=== PATIENT | male | born 1940 | race Caucasian/White ===

== ENCOUNTER 2019-02-03 09:50 | Inpatient (IN) | payer OTHER, MEDICARE ==
[2019-02-03] MEDS ORDERED: CEFEPIME 1 GM/100 ML BAG IV ONE (10:29)
[2019-02-03] MEDS ORDERED: NA CHLORIDE 0.9% 0 ML ONE (10:29)
[2019-02-03] MEDS ORDERED: NOREPINEPHRINE 4mg/D5W 250mL 4 MG/250 ML BAG IV ONE (10:42)
[2019-02-03] MEDS ORDERED: VANCOMYCIN/NS 1 gm 1 GM/250 ML BAG IV ONE (10:45)
[2019-02-03 10:57] LABS: Absolute Lymphocytes (CBC) 0.5 K/uL (0.7-4.9); Basophils % 0.1 % (0-1.3); Hematocrit 44.7 % (39.6-49.0); Lymphocytes % 7.7 % (15.3-44.8); MPV 9.3 fL (7.6-11.3); RBC Red Blood Cell Count 5.02 M/uL (4.33-5.43)
[2019-02-03] MEDS ORDERED: NA CHLORIDE 0.9% 2,000 ML ONE (11:00)
[2019-02-03] MEDS ORDERED: ACETAMINOPHEN 650MG/RECT SUPP PR ONE (11:00)
[2019-02-03 11:01] LABS: Protime INR 2.43
[2019-02-03 11:04] LABS: Arterial Blood Carboxyhemoglob 0.7 % (0-1.5); Blood Gas Oxyhemoglobin 98.3 % (94-97); Blood O2 Saturation 99.6 % (92-98.5)
[2019-02-03 11:16] LABS: Urine Blood NEGATIVE (NEG); Urine Glucose NEGATIVE (NEG); Urine Protein NEGATIVE (NEG); Urine Specific Gravity 1.015 (1.005-1.030); Urine pH 5.5 (5.0-7.0)
[2019-02-03 11:18] LABS: Albumin 3.1 g/dL (3.4-5.0); Bilirubin Direct 0.6 mg/dL (0-0.2); Bilirubin Total 1.1 mg/dL (0.2-1.0); Protein, Total 6.6 g/dL (6.4-8.2); Troponin (Emerg Dept Use Only) 0.04 ng/mL (0.0-0.045)
--- NOTE | 2019-02-03 11:22 | RAD REPORT ---
EXAM DESCRIPTION: Deneen Single View02/03/2019 11:03 am CLINICAL HISTORY: Chest pain COMPARISON: 2016 FINDINGS: The lungs appear clear of acute infiltrate. The heart is mildly enlarged The aorta is tortuous/ectatic IMPRESSION: No acute abnormalities displayed
[2019-02-03 11:23] LABS: CKMB Creatine Kinase MB 10.9 ng/mL (0.3-3.6); Potassium 2.7 mmol/L (3.5-5.1)
[2019-02-03] MEDS ORDERED: KCL 20 MEQ/100 mL IVPB 20 MEQ/100 ML BAG IV ONE (11:31)
[2019-02-03] MEDS ORDERED: NA CHLORIDE 0.9% 1,000 ML ONE (11:46)
--- NOTE | 2019-02-03 11:57 | EDPHYS ---
Physician Documentation [facility] Name: Calin Weems Age: 78 yrs Sex: Male : 1940 Arrival Date: 02/03/2019 Time: 10:04 Bed 4 Private MD: ED Physician Kayden Coe HPI: 02/03 11:51 This 78 yrs old Male presents to ER via Wheelchair with complaints of Leg jr8 Swelling/ Shortness of breath. 11:51 The patient has shortness of breath at rest. Onset: The symptoms/episode began/occurred jr8 acutely, today. Duration: The symptoms are continuous. The patient's shortness of breath is aggravated by talking, walking. Associated signs and symptoms: Pertinent positives: fever. Severity of symptoms: At their worst the symptoms were severe in the emergency department the symptoms are unchanged. The patient has not experienced similar symptoms in the past. The patient has not recently seen a physician. Historical: - Allergies: 10:10 Demerol; aa5 10:10 Lisinopril; aa5 11:57 meperidine HCl; tw2 11:57 nifedipine; tw2 11:57 cephalexin; tw2 - PMHx: 10:10 Hyperlipidemia; Hypertension; aa5 - PSHx: 10:10 Hernia repair; prostate surgery; back surgery; aa5 - Immunization history:: Adult Immunizations unknown. - Ebola Screening: : No symptoms or risks identified at this time. - Social history:: Smoking status: Patient/guardian denies using tobacco. ROS: 11:52 Eyes: Negative for injury, pain, redness, and discharge, ENT: Negative for injury, jr8 pain, and discharge, Neck: Negative for injury, pain, and swelling, Cardiovascular: Negative for chest pain, palpitations, and edema, Abdomen/GI: Negative for abdominal pain, nausea, vomiting, diarrhea, and constipation, Back: Negative for injury and pain, Skin: Negative for injury, rash, and discoloration, Neuro: Negative for headache, weakness, numbness, tingling, and seizure. 11:52 Constitutional: Positive for fever. 11:52 Respiratory: Positive for shortness of breath. 11:52 MS/extremity: Positive for erythema, pain, swelling, tenderness, warmth. Exam: 11:52 Eyes: Pupils equal round and reactive to light, extra-ocular motions intact. Lids and jr8 lashes normal. Conjunctiva and sclera are non-icteric and not injected. Cornea within normal limits. Periorbital areas with no swelling, redness, or edema. ENT: Nares patent. No nasal discharge, no septal abnormalities noted. Tympanic membranes are normal and external auditory canals are clear. Oropharynx with no redness, swelling, or masses, exudates, or evidence of obstruction, uvula midline. Mucous membranes moist. Neck: Trachea midline, no thyromegaly or masses palpated, and no cervical lymphadenopathy. Supple, full range of motion without nuchal rigidity, or vertebral point tenderness. No Meningismus. Abdomen/GI: Soft, non-tender, with normal bowel sounds. No distension or tympany. No guarding or rebound. No evidence of tenderness throughout. Back: No spinal tenderness. No costovertebral tenderness. Full range of motion. MS/ Extremity: Pulses equal, no cyanosis. Neurovascular intact. Full, normal range of motion. Neuro: Awake and alert, GCS 15, oriented to person, place, time, and situation. Cranial nerves II-XII grossly intact. Motor strength 5/5 in all extremities. Sensory grossly intact. Cerebellar exam normal. Normal gait. 11:52 Cardiovascular: Rate: tachycardic, Rhythm: regular, Pulses: Pulses are 2+ in right radial artery, right femoral artery, left radial artery and left femoral artery. Heart sounds: normal, normal S1and S2, no S3 or S4, no murmur, no rub, no gallop, Edema: 2+ edema to level of left midcalf, left ankle, left foot, right midcalf, right ankle and right foot, JVD: is not appreciated. 11:52 Respiratory: moderate respiratory distress is noted, Respirations: labored breathing, tachypnea, Breath sounds: are clear throughout. 11:52 Skin: cellulitis, that is moderate, on the right and left lower legs from the feet to knees. Vital Signs: 10:10 BP 64 / 52; Pulse 130; Resp 30 S; Temp 100.4(TE); Pulse Ox 95% on R/A; aa5 10:35 BP 65 / 52; Pulse 136; Resp 46; Pulse Ox 96% on R/A; ch 11:15 BP 103 / 63; Pulse 122; Resp 36; Temp 103.2(C); Pulse Ox 99% on BiPAP; Weight 104.33 ch kg; Height 5 ft. 7 in. (170.18 cm); Pain 0/10; 11:32 BP 116 / 63; Pulse 123; Resp 40; Temp 102.6(C); Pulse Ox 100% on R/A; Pain 0/10; ch 11:56 BP 113 / 83; Pulse 119; Resp 37; Temp 102(C); Pulse Ox 100% on BiPAP; tw2 12:15 BP 116 / 72; Pulse 135; Resp 25; Pulse Ox 97% on BiPAP; tw2 12:30 BP 116 / 82; Pulse 143; Resp 44; Temp 102.2(C); Pulse Ox 100% on BiPAP; Pain 0/10; ch 12:45 BP 97 / 71; Pulse 126; Resp 27; Pulse Ox 95% on BiPAP; tw2 13:00 BP 113 / 50; Pulse 133; Resp 30; Pulse Ox 95% on BiPAP; tw2 13:14 BP 92 / 63; Pulse 141; Resp 42; Temp 102.3(C); Pulse Ox 95% on BiPAP; Pain 8/10; ch 13:30 BP 88 / 60; Pulse 130; Resp 41; Pulse Ox 99% on BiPAP; tw2 13:45 BP 95 / 48; Pulse 113; Resp 30; Pulse Ox 99% on BiPAP; ch 14:00 BP 84 / 72; Pulse 122; Resp 33; Pulse Ox 100% on BiPAP; tw2 14:15 BP 90 / 74; Pulse 130; Resp 24; Temp 101.6(C); Pulse Ox 99% on BiPAP; tw2 14:30 BP 104 / 66; Pulse 142; Resp 35; Temp 101.5(C); Pulse Ox 99% ; Pain 6/10; ch 14:45 BP 99 / 66; Pulse 114; Resp 33; Pulse Ox 98% on BiPAP; tw2 11:15 Body Mass Index 36.02 (104.33 kg, 170.18 cm) ch Procedures: 10:47 Central Line: the site was prepped with Betadine, in sterile fashion, a triple lumen jr8 catheter was inserted, in the right femoral vein, in 1 attempts. placement was verified, by blood return, the site was dressed with 4X4s, Tegaderm, foam tape, using sterile technique, the patient tolerated the procedure, well. MDM: 10:15 Patient medically screened. jr8 11:54 Data reviewed: vital signs, nurses notes, lab test result(s), EKG, radiologic studies, jr8 plain films, ultrasound. Data interpreted: Pulse oximetry: on Bipap is 100 %. Interpretation: acceptable. Counseling: I had a detailed discussion with the patient and/or guardian regarding: the historical points, exam findings, and any diagnostic results supporting the discharge/admit diagnosis, lab results, radiology results, the need for further work-up and treatment in the hospital. Response to treatment: the patient's symptoms have mildly improved after treatment. Physician consultation: Adalberto Molina MD was called at 11:55, was contacted at 11:55, regarding admission, to the ICU, consult, patient's condition, and will see patient in ED. 02/03 10:26 Order name: Basic Metabolic Panel; Complete Time: 11:34 02/03 10:26 Order name: Blood Culture Adult (2) 02/03 10:26 Order name: CBC with Diff 02/03 10:26 Order name: Ckmb; Complete Time: 11:34 02/03 10:26 Order name: CPK; Complete Time: 11:34 02/03 10:26 Order name: Lactate; Complete Time: 11:23 02/03 10:26 Order name: LFT's; Complete Time: 11:34 02/03 10:26 Order name: Lipase; Complete Time: 11:34 02/03 10:26 Order name: Procalcitonin; Complete Time: 11:34 02/03 10:26 Order name: Protime (+inr); Complete Time: 11:07 02/03 10:26 Order name: Ptt, Activated; Complete Time: 11:07 02/03 10:26 Order name: Troponin (emerg Dept Use Only); Complete Time: 11:34 02/03 10:26 Order name: Urine Microscopic Only; Complete Time: 12:09 02/03 11:02 Order name: ABG; Complete Time: 11:07 jr8 02/03 10:26 Order name: Chest Single View XRAY; Complete Time: 11:34 02/03 10:45 Order name: US Extremity Venous W Compression Douglas; Complete Time: 12:33 jr8 02/03 11:02 Order name: BIPAP jr8 02/03 11:04 Order name: Urine Dipstick--Ancillary (enter results); Complete Time: 11:17 gm 02/03 11:23 Order name: Magnesium; Complete Time: 12:09 jr8 02/03 11:23 Order name: Phosphorus; Complete Time: 12:09 jr8 02/03 12:09 Order name: Urine Culture EDMS 02/03 13:04 Order name: Lactate; Complete Time: 14:15 tw2 02/03 13:27 Order name: ABG; Complete Time: 14:26 jr8 02/03 10:26 Order name: Accucheck; Complete Time: 11:41 ch 02/03 10:26 Order name: Cardiac monitoring; Complete Time: 10:41 ch 02/03 10:26 Order name: EKG - Nurse/Tech; Complete Time: 10:41 ch 02/03 10:26 Order name: IV Saline Lock - Large Bore; Complete Time: 11:36 ch 02/03 10:26 Order name: Labs collected and sent; Complete Time: 11:36 ch 02/03 10:26 Order name: O2 Per Protocol; Complete Time: 10:41 ch 02/03 10:26 Order name: O2 Sat Monitoring; Complete Time: 10:41 ch 02/03 10:26 Order name: Urine Dipstick-Ancillary (obtain specimen); Complete Time: 11:36 ch 02/03 12:47 Order name: EKG Electrocardiogram EDMS Administered Medications: 10:40 Drug: NS 0.9% (30 ml/kg) 3000 ml Route: IV; Rate: bolus; Site: right femoral; 11:45 Follow up: IV Status: Completed infusion; IV Intake: 3000ml ch 13:31 Follow up: IV Status: Completed infusion; IV Intake: 100ml ch 10:51 Drug: Cefepime 1 grams Route: IVPB; Rate: 200 ml/hr; Infused Over: 30 mins; Site: right ch femoral; 11:00 Follow up: IV Status: Completed infusion; IV Intake: 100ml ch 10:51 Drug: Levophed (4 mg/250 mL D5W 4 mcg/min Route: IV; Rate: calculated rate; Site: right ch femoral; 14:13 Follow up: IV Status: Infusion continued upon admission ch 11:00 Drug: Tylenol Suppository 650 mg Route: TX; 14:13 Follow up: Response: No adverse reaction 11:13 Drug: vancoMYCIN 1 grams Route: IVPB; Infused Over: 2 hrs; Site: right femoral; 13:30 Follow up: IV Status: Completed infusion; IV Intake: 200ml 11:33 Drug: Potassium Chloride 20 mEq Route: IV; Rate: calculated rate; Site: right femoral; 13:28 Follow up: IV Status: Completed infusion; IV Intake: 50ml 13:15 Drug: fentaNYL (PF) 50 mcg Route: IVP; Site: right femoral; Disposition: 02/04 07:36 Co-signature as Attending Physician, Kayden Coe MD I agree with the assessment and robbie plan of care. Disposition: 02/03/19 11:57 Hospitalization ordered by Adalberto Molina for Inpatient Admission. Preliminary diagnosis are Acute kidney failure, Cellulitis of left lower limb, Cellulitis of right lower limb, Acidosis, Dehydration, Severe sepsis with septic shock, Urinary tract infection, site not specified. - Bed requested for Intensive Care Unit. - Status is Inpatient Admission. tw2 - Condition is Fair. - Problem is new. - Symptoms have improved. UTI on Admission? Yes Signatures: Dispatcher [employer] EDMS Yashira King RN RN ch Anderson, Corey, MD MD cha Calderon, Audri, RN RN aa5 Davide Silver PA PA jr8 Nikki Cm RN RN tw2 Jame Ramírez RN RN ja1 Corrections: (The following items were deleted from the chart) 02/03 12:09 11:57 Hospitalization Ordered by Adalberto Molina MD for Inpatient Admission. Preliminary jr8 diagnosis is Acute kidney failure; Cellulitis of left lower limb; Cellulitis of right lower limb; Acidosis; Dehydration; Severe sepsis with septic shock. Bed requested for Intensive Care Unit. Status is Inpatient Admission. Condition is Fair. Problem is new. Symptoms have improved. UTI on Admission? No. jr8 12:09 12:09 02/03/2019 11:57 Hospitalization Ordered by Adalberto Molina MD for Inpatient jr8 Admission. Preliminary diagnosis is Acute kidney failure; Cellulitis of left lower limb; Cellulitis of right lower limb; Acidosis; Dehydration; Severe sepsis with septic shock. Bed requested for Intensive Care Unit. Status is Inpatient Admission. Condition is Fair. Problem is new. Symptoms have improved. UTI on Admission? Yes. jr8 13:59 12:09 02/03/2019 11:57 Hospitalization Ordered by Adalberto Molina MD for Inpatient ja1 Admission. Preliminary diagnosis is Acute kidney failure; Cellulitis of left lower limb; Cellulitis of right lower limb; Acidosis; Dehydration; Severe sepsis with septic shock; Urinary tract infection, site not specified. Bed requested for Intensive Care Unit. Status is Inpatient Admission. Condition is Fair. Problem is new. Symptoms have improved. UTI on Admission? Yes. jr8 14:48 13:59 02/03/2019 11:57 Hospitalization Ordered by Adalberto Molina MD for Inpatient tw2 Admission. Preliminary diagnosis is Acute kidney failure; Cellulitis of left lower limb; Cellulitis of right lower limb; Acidosis; Dehydration; Severe sepsis with septic shock; Urinary tract infection, site not specified. Bed requested for Intensive Care Unit. Status is Inpatient Admission. Condition is Fair. Problem is new. Symptoms have improved. UTI on Admission? Yes. ja1
--- NOTE | 2019-02-03 11:57 | ER ---
Nurse's Notes [facility] Name: Calin Weems Age: 78 yrs Sex: Male : 1940 Arrival Date: 02/03/2019 Time: 10:04 Bed 4 Private MD: Diagnosis: Acute kidney failure;Cellulitis of left lower limb;Cellulitis of right lower limb;Acidosis;Dehydration;Severe sepsis with septic shock;Urinary tract infection, site not specified Presentation: 02/03 10:10 Presenting complaint: Patient states: SOB noted in triage. Pt report rose leg swelling. aa5 Unable to obtain oral temperature at this time due to SOB/tachypnea. 10:10 Transition of care: patient was not received from another setting of care. Onset of aa5 symptoms was February 03, 2019. Initial Sepsis Screen: Does the patient meet any 2 criteria? RR > 20 per min. Systolic BP < 90 mmHg. HR > 90 bpm. Yes Does the patient have a suspected source of infection? Yes: If YES to both, name of provider notified: Davide ART. 10:10 Acuity: IKM 1 aa5 10:10 Method Of Arrival: Wheelchair aa5 11:40 Risk Assessment: Do you want to hurt yourself or someone else? Patient reports no tw2 desire to harm self or others. Care prior to arrival: None. Historical: - Allergies: 10:10 Demerol; aa5 10:10 Lisinopril; aa5 11:57 meperidine HCl; tw2 11:57 nifedipine; tw2 11:57 cephalexin; tw2 - PMHx: 10:10 Hyperlipidemia; Hypertension; aa5 - PSHx: 10:10 Hernia repair; prostate surgery; back surgery; aa5 - Immunization history:: Adult Immunizations unknown. - Ebola Screening: : No symptoms or risks identified at this time. - Social history:: Smoking status: Patient/guardian denies using tobacco. Screenin:40 Abuse screen: Denies threats or abuse. Nutritional screening: No deficits noted. tw2 Tuberculosis screening: No symptoms or risk factors identified. Fall Risk Secondary diagnosis (15 points) impaired mobility. Assessment: 10:10 General: Appears distressed, uncomfortable, Behavior is cooperative. Neuro: Level of ch Consciousness is obeys commands, confused, lethargic, Oriented to person, place, Night Nurse are weak bilaterally Moves all extremities. Weakness Speech is slurred, Facial symmetry appears normal, Facial symmetry: tongue is midline. Respiratory: Airway is patent Trachea midline Respiratory effort is labored, gasping, with retractions, Respiratory pattern is tachypnea Breath sounds are coarse bilaterally. Breath sounds are diminished bilaterally. 10:10 Cardiovascular: Heart tones S1 S2 Bruits absent Capillary refill is sluggish in ch bilateral Clubbing of nail beds is present in toes. Edema is 4+ to left knee, left midcalf, left ankle, left foot, right knee, right midcalf, right ankle and right foot pitting to left knee, left midcalf, left ankle, left foot, right knee, right midcalf, right ankle and right foot pt rose lower legs are purple and mottled. cool. skin is streatched so tightly it is weeping. : No signs and/or symptoms were reported regarding the genitourinary system. Derm: Skin is fragile, with poor turgor Skin is clammy, Skin is mottled, Skin temperature is cool. 10:10 Reassessment: I remain one on with pt. 10:20 Reassessment: PA at bedside setting up for central line placement . aa5 11:16 Pain: Denies pain. GI: Abdomen is round non-distended, Bowel sounds present X 4 quads. ch bowel sounds are sightly diminished. 11:28 Reassessment: Patient and/or family updated on plan of care and expected duration. Pain ch level reassessed. Patient states symptoms have improved. Reassessment: pt is moving air well, is more alert. pt is aaox3. pt deneis pain, states he doesn't feel well. 11:39 Reassessment: provider at bedside at this time. tw2 12:22 Reassessment:. ch 12:30 Reassessment: Patient appears in no apparent distress at this time. pt is rolling onto ch his side, states he is more comfortable there. provider states it is fine, just have him lay on his back for the Q15 min vitals for levophed titration. pt is more alert, follows commands well. pt verb understanding of npo. 12:47 Reassessment: Dr. molina at bedside. 13:13 Reassessment: Patient appears in no apparent distress at this time. pt states his ch feetare burning like fire. pt medicated per orders. 14:05 Reassessment: pt is rolling around in bed, states he feels uncomfortable. pt states he ch wants to sit up and dangle his feet off the edge of the bed. pt educated on condition and that he cannot sit on the edge of the bed while getting levophed. 14:25 Reassessment: Patient appears in no apparent distress at this time. report called to lamont galindo RN. Vital Signs: 10:10 BP 64 / 52; Pulse 130; Resp 30 S; Temp 100.4(TE); Pulse Ox 95% on R/A; aa5 10:35 BP 65 / 52; Pulse 136; Resp 46; Pulse Ox 96% on R/A; ch 11:15 BP 103 / 63; Pulse 122; Resp 36; Temp 103.2(C); Pulse Ox 99% on BiPAP; Weight 104.33 ch kg; Height 5 ft. 7 in. (170.18 cm); Pain 0/10; 11:32 BP 116 / 63; Pulse 123; Resp 40; Temp 102.6(C); Pulse Ox 100% on R/A; Pain 0/10; ch 11:56 BP 113 / 83; Pulse 119; Resp 37; Temp 102(C); Pulse Ox 100% on BiPAP; tw2 12:15 BP 116 / 72; Pulse 135; Resp 25; Pulse Ox 97% on BiPAP; tw2 12:30 BP 116 / 82; Pulse 143; Resp 44; Temp 102.2(C); Pulse Ox 100% on BiPAP; Pain 0/10; ch 12:45 BP 97 / 71; Pulse 126; Resp 27; Pulse Ox 95% on BiPAP; tw2 13:00 BP 113 / 50; Pulse 133; Resp 30; Pulse Ox 95% on BiPAP; tw2 13:14 BP 92 / 63; Pulse 141; Resp 42; Temp 102.3(C); Pulse Ox 95% on BiPAP; Pain 8/10; ch 13:30 BP 88 / 60; Pulse 130; Resp 41; Pulse Ox 99% on BiPAP; tw2 13:45 BP 95 / 48; Pulse 113; Resp 30; Pulse Ox 99% on BiPAP; ch 14:00 BP 84 / 72; Pulse 122; Resp 33; Pulse Ox 100% on BiPAP; tw2 14:15 BP 90 / 74; Pulse 130; Resp 24; Temp 101.6(C); Pulse Ox 99% on BiPAP; tw2 14:30 BP 104 / 66; Pulse 142; Resp 35; Temp 101.5(C); Pulse Ox 99% ; Pain 6/10; ch 14:45 BP 99 / 66; Pulse 114; Resp 33; Pulse Ox 98% on BiPAP; tw2 11:15 Body Mass Index 36.02 (104.33 kg, 170.18 cm) Vitals: 11:32 Cardiac Rhythm Assessment Sinus tach. ED Course: 10:04 Patient arrived in ED. aa5 10:10 Arm band placed on. aa5 10:11 Patient placed in an exam room, on a stretcher. aa5 10:14 Davide Silver PA is PHCP. jr8 10:15 Kayden Coe MD is Attending Physician. jr8 10:18 Missed attempt(s): 20 gauge in left antecubital area. Bleeding controlled, band aid aa5 applied, catheter tip intact. 10:20 Missed attempt(s): 20 gauge 22 gauge in left in right forearm. antecubital area. Bleeding controlled, band aid applied, catheter tip intact. 10:23 Triage completed. aa5 10:25 Yashira King, LIZZIE is Primary Nurse. 10:35 Patient has correct armband on for positive identification. Placed in gown. Bed in low ch position. Call light in reach. Side rails up X2. seating upholsterer on. Pulse ox on. NIBP on. 10:35 Assisted provider with central line placement. Set up central line tray. Triple lumen line placed in right femoral. Line placed by Davide ART Placement verified by blood return, Dressed with Tegaderm, Blood was collected. Patient tolerated well. Before procedure, did Practitioner(s) obtain informed consent? No. Patient \T\ family education about procedure, CLABSI prevention and S/S of infection? Yes. Time-out/Briefing performed prior to start of procedure? Yes. Was handwashing/sanitizing done immediately prior to procedure? Yes. Was patient positioned to in a way to prevent air embolism? Yes. Was procedure site sterilized? Yes, with chlorhexidine. Was the site allowed to dry? Yes. Was local anesthetic and/or sedation utilized? Yes. During the procedure, did the Practitioner(s) maintain a sterile field? Yes. Were unused ports clamped during insertion? Yes. Was a 2nd qualified MD obtained after 3 unsuccessful insertion attempts? N/A. Was blood aspirated from each lumen? Yes. After the procedure, did the Practitioner(s) clean the site and apply a sterile dressing? Yes. Initial lab(s) drawn, by ED staff, sent to lab. 10:46 EKG done, by settlement technician. reviewed by Davide ART. at1 11:03 Chest Single View XRAY In Process Unspecified. EDMS 11:28 US Extremity Venous W Compression Rose In Process Unspecified. EDMS 11:55 Adalberto Molina MD is Hospitalizing Provider. jr8 14:27 No apparent distress. Resting quietly. ch 14:27 Patient admitted, IV remains in place. ch Administered Medications: 10:40 Drug: NS 0.9% (30 ml/kg) 3000 ml Route: IV; Rate: bolus; Site: right femoral; ch 11:45 Follow up: IV Status: Completed infusion; IV Intake: 3000ml ch 13:31 Follow up: IV Status: Completed infusion; IV Intake: 100ml ch 10:51 Drug: Cefepime 1 grams Route: IVPB; Rate: 200 ml/hr; Infused Over: 30 mins; Site: right ch femoral; 11:00 Follow up: IV Status: Completed infusion; IV Intake: 100ml ch 10:51 Drug: Levophed (4 mg/250 mL D5W 4 mcg/min Route: IV; Rate: calculated rate; Site: right ch femoral; 14:13 Follow up: IV Status: Infusion continued upon admission ch 11:00 Drug: Tylenol Suppository 650 mg Route: LA; ch 14:13 Follow up: Response: No adverse reaction ch 11:13 Drug: vancoMYCIN 1 grams Route: IVPB; Infused Over: 2 hrs; Site: right femoral; ch 13:30 Follow up: IV Status: Completed infusion; IV Intake: 200ml ch 11:33 Drug: Potassium Chloride 20 mEq Route: IV; Rate: calculated rate; Site: right femoral; ch 13:28 Follow up: IV Status: Completed infusion; IV Intake: 50ml ch 13:15 Drug: fentaNYL (PF) 50 mcg Route: IVP; Site: right femoral; ch Intake: 11:00 IV: 100ml; Total: 100ml. ch 11:45 IV: 3000ml; Total: 3100ml. ch 13:28 IV: 50ml; Total: 3150ml. ch 13:30 IV: 200ml; Total: 3350ml. ch 13:31 IV: 100ml; Total: 3450ml. ch Outcome: 11:57 Decision to Hospitalize by Provider. jr8 14:48 Admitted to ICU accompanied by nurse, accompanied by tech, via stretcher, room 7, with tw2 oxygen, on monitor, with chart. 14:48 critical 14:48 Instructed on the need for admit. 14:48 Patient left the ED. tw2 Signatures: Dispatcher [employer] EDMS Yashira King, RN RN Mervat Hardy RN RN aa5 Davide Silver PA PA jr8 Iqra Manning, tennis net maker EKG Nikki Morales RN RN tw2 Corrections: (The following items were deleted from the chart) 11:27 11:16 General: Appears distressed, uncomfortable, Behavior is cooperative, [facility] 11:27 11:16 Neuro: Level of Consciousness is obeys commands, confused, lethargic, Oriented to person, place, Night Nurse are weak bilaterally Moves all extremities. Weakness Speech is slurred, Facial symmetry appears normal, Facial symmetry: tongue is midline, 11:27 11:16 Respiratory: Airway is patent Trachea midline Respiratory effort is labored, ch gasping, with retractions, Respiratory pattern is tachypnea Breath sounds are coarse bilaterally. Breath sounds are diminished bilaterally. 14:12 14:00 BP 84 / 72; Pulse 100bpm; Resp 33bpm; Pulse Ox 100% BiPAP; tw2 tw2 14:12 10:35 Tylenol Suppository 650 mg LA [facility] 14:26 10:10 Initial Sepsis Screen: Does the patient meet any 2 criteria? RR > 20 per min. aa5 Systolic BP < 90 mmHg. HR > 90 bpm. Yes Does the patient have a suspected source of infection? Yes: aa5 14:27 13:45 BP 85 / 48; Pulse 113bpm; Resp 30bpm; Pulse Ox 99% BiPAP; tw2
[2019-02-03 11:59] LABS: Phosphorus 4.6 mg/dL (2.5-4.9)
[2019-02-03 12:07] LABS: Urine Bacteria 20-50 /HPF (NONE SEEN); Urine RBC <5 /HPF (NONE SEEN)
[2019-02-03 12:08] LABS: Urine Culture Reflex Order REFLEXED; Urine Mucus MOD /HPF (NONE SEEN)
--- NOTE | 2019-02-03 12:18 | RAD REPORT ---
EXAM DESCRIPTION: USExtrem Venous W Compress Bil02/03/2019 11:27 am CLINICAL HISTORY: Bilateral leg swelling COMPARISON: none FINDINGS: The common femoral, superficial femoral, popliteal and posterior tibial veins bilaterally are compressible and demonstrate augmentation. Doppler demonstrates good flow. IMPRESSION: No evidence of deep venous thrombosis involving either lower extremity.
[2019-02-03] MEDS ORDERED: FENTANYL CITR 100 MCG/2 ML ONE ×3 (13:06→23:00)
[2019-02-03] MEDS ORDERED: IBUPROFEN 400 MG TAB ONE (13:20)
[2019-02-03 14:15] LABS: Arterial Blood Carboxyhemoglob 0.6 % (0-1.5); Blood Gas Oxyhemoglobin 98.1 % (94-97); Blood O2 Saturation 99.4 % (92-98.5)
[2019-02-03] MEDS ORDERED: ONDANSETRON 4 MG/2 ML VIAL IV PRN (15:37)
[2019-02-03] MEDS ORDERED: NA CHLORIDE 0.9% 1,000 ML IV SCH (15:37)
[2019-02-03] MEDS ORDERED: VANCOMYCIN 1.25 GM in NA CHLORIDE 0.9% 250 ML IVPB SCH (15:37)
[2019-02-03] MEDS ORDERED: SODIUM CHLORIDE 0.9% 10ML INJ IV PRN (15:37)
--- NOTE | 2019-02-03 15:48 | P.HP ---
Certification for Inpatient Patient admitted to: Inpatient With expected LOS: >2 Midnights Practitioner: I am a practitioner with admitting privileges, knowledge of patient current condition, hospital course, and medical plan of care. Services: Services provided to patient in accordance with Admission requirements found in Title 42 Section 412.3 of the Code of Federal Regulations Patient History Date of Service: 02/03/19 History of Present Illness: This is a 78-year-old male with multiple medical problems who is also a poor historian presented to the emergency room with complaints of leg swelling and shortness of breath. The history is mostly taken from chart review as patient really not unable to tell me much. No family at bedside. It seems that patient started with shortness of breath at rest that has been progressively worsening. Shortness of breath, worse with talking or walking. He has also been afebrile at home. Therefore he came to the emergency room. In the ER, blood pressure was 64/52, heart rate of 130, respirations of 30, febrile and 100.4. He has a BMI 36. His labs were remarkable for potassium low at 2.7, CO2 low at 13, creatinine elevated at 2.95, BUN elevated at 37. Lactic acid was also elevated to 14.1 which improved to 11.5 after IV fluids. Pro calcitonin was elevated to 42.52, CK MB was also elevated to 10.9. His CBC was stable. Blood gases showed low bicarb. At the time of my exam, patient was slightly confused, on BiPAP and blood pressure was holding stable with Levophed. Allergies lisinopril Allergy (Severe, Verified 03/06/16 10:16) Anaphylaxis meperidine HCl [From Demerol] Allergy (Intermediate, Verified 03/06/16 10:16) Hives cephalexin Allergy (Verified 03/06/16 10:16) unknown nifedipine Allergy (Verified 03/06/16 10:16) unknown Home Medications: RX: Lactobacillus Acidophilus [Acidophilus] 1 each PO BEDTIME 02/23/12 RX: Methyldopa 750 mg PO BID 02/23/12 RX: Ranitidine [Zantac*] 300 mg PO DAILY 02/23/12 RX: Simethicone [Gas-X] 80 mg PO DAILY 02/23/12 RX: Albuterol Sulfate [Proair Hfa] 2 aero IH Q4HP PRN 01/31/16 RX: Diltiazem HCl [Diltiazem 24Hr Cd] 120 mg PO DAILY 01/31/16 RX: Allopurinol [Zyloprim*] 100 mg PO DAILY tab 03/12/16 RX: Atorvastatin Calcium [Lipitor*] 10 mg PO BEDTIME tab 03/12/16 RX: Methyldopa [Aldomet*] 750 mg PO BID tab 03/12/16 RX: Metoprolol Tartrate [Lopressor*] 50 mg PO BID #30 tab 03/12/16 - Past Medical/Surgical History Diabetic: No -: HTN -: GERD -: Arthritis -: High Cholesterol -: hyperlipidemia -: parkinsons -: gout -: prostate -: hernia repair -: left knee replacement -: colectomy-large intestine -: skin CA, facial - Social History Alcohol use: No CD- Drugs: No Caffeine use: No Review of Systems 10-point ROS is otherwise unremarkable Physical Examination - Vital Signs Temperature: 100.4 F Blood Pressure: 65/52 Pulse: 136 Respirations: 46 - Physical Exam General: Alert, Mild distress, Moderate distress, Confused, Obese Respiratory: Diminished Cardiovascular: Normal S1 S2, Irregular heart rate/rhythm (Tachycardia) Gastrointestinal: Normal bowel sounds, No tenderness, Distended Musculoskeletal: Swelling, Erythema, Warmth, Other (Bilateral lower extremity swelling, chronic skin changes with overlying acute blisters that are weeping. Swelling goes up to the knees bilaterally,) - Studies Laboratory Data (last 24 hrs) 02/03/19 10:36: Phosphorus 4.6, Magnesium 2.0 02/03/19 10:36: PT 27.7 H, INR 2.43, APTT 25.3 02/03/19 10:36: WBC 7.0, Hgb 15.3, Hct 44.7, Plt Count 308 02/03/19 10:36: Sodium 141, Potassium 2.7 L*, BUN 37 H, Creatinine 2.95 H, Glucose 77, Total Bilirubin 1.1 H, AST 79 H, ALT 52, Alkaline Phosphatase 48, Lipase 64 L Assessment and Plan - Problems (Diagnosis) (1) Septic shock Current Visit: Yes Status: Acute Plan: Source seems to be lower extremity cellulitis, which is severe -continue IV antibiotics -IV fluids, maintenance dose -supportive care with oxygen and BiPAP as needed. Will wean as tolerated -wean Levophed to keep the map above 65 (2) Lower extremity cellulitis Current Visit: Yes Status: Acute Plan: Bilateral lower extremity cellulitis -cultures pending -concerning for vibrio vulnificus. Continue IV antibiotics with vancomycin, cefepime and doxycycline -ultrasound negative for DVT bilaterally -may need to get wound care involved (3) Acute renal injury Current Visit: No Status: Acute Plan: Likely secondary to septic shock -continue to monitor -continue IV fluid -avoid nephrotoxic medication - Plan Will need to confirm home medications and other medical history with family members. Disposition: Admit to ICU, pending symptomatic improvement - Advance Directives Does patient have a Living Will: No Does patient have a Durable POA for Healthcare: No Critical Care: Yes Time Spent Managing Pts Care (In Minutes): 60
[2019-02-03 16:06] LABS: Absolute Lymphocytes (CBC) 0.5 K/uL (0.7-4.9); Basophils % 0.2 % (0-1.3); Hematocrit 42.2 % (39.6-49.0); Lymphocytes % 7.7 % (15.3-44.8); MPV 9.6 fL (7.6-11.3); RBC Red Blood Cell Count 4.73 M/uL (4.33-5.43)
[2019-02-03 16:16] LABS: Potassium 3.3 mmol/L (3.5-5.1)
[2019-02-03] MEDS ORDERED: VANCOMYCIN 1.5 GM in NA CHLORIDE 0.9% 500 ML IVPB SCH (17:00)
[2019-02-03] MEDS ORDERED: DOXYCYCLINE 100 MG in NA CHLORIDE 0.9% 100 ML IVPB SCH (17:00)
[2019-02-03] MEDS: KCL 20 MEQ/100 mL IVPB 20 MEQ/100 ML BAG IV SCH ×2 (17:02→19:05)
[2019-02-03 17:26] LABS: Blood Morphology Comment NOTED (NOT SEEN); Platelet Estimate ADEQ; Toxic Granulation PRESENT
[2019-02-03] MEDS ORDERED: PNEUMOCOCCAL VACCINE 0.5 ML IMVAC ONE (18:00)
[2019-02-03] MEDS ORDERED: SODIUM BICARB 50 MEQ/50ML VIAL IV ONE (18:00)
--- NOTE | 2019-02-03 18:26 | EKG ---
Test Date: 2019-02-03 Test Time: 10:11:55 Air Pollution Engineer: NICKY MEASUREMENT RESULTS: Intervals: Rate: 128 [place]: 152 QRSD: 68 QT: 280 QTc: 408 [place]: P: 68 [place]: 152 QRS: -27 T: 75 INTERPRETIVE STATEMENTS: Atrial flutter with variable AV block Abnormal ECG Compared to ECG 03/05/2016 17:38:31 Sinus rhythm no longer present Electronically Signed On 02-03-19 18:25:51 CDT by Audie Phillips
[2019-02-03] MEDS ORDERED: CEFEPIME/SWI 1gm 10 ML IVP SCH (21:00)
[2019-02-03] MEDS ORDERED: CEFEPIME 1 GM/VIAL IV SCH (21:00)
[2019-02-03] MEDS: NOREPINEPHRINE 4 MG in D5W 250 ML IV PRN (21:13)
[2019-02-03] MEDS ORDERED: RSI MEDICATION KIT IV ONE (22:22)
[2019-02-03] MEDS ORDERED: PANTOPRAZOLE 40 MG INJ ONE (22:33)
[2019-02-03] MEDS ORDERED: NA CHLORIDE 0.9% 500 ML ONE (22:34)
[2019-02-03] MEDS ORDERED: OCTREOTIDE ACETATE 500 MCG/ML ONE (22:35)
[2019-02-03] MEDS ORDERED: NA CHLORIDE 0.9% 250 ML ONE (23:01)
[2019-02-03] MEDS ORDERED: HYDROCORTISONE SUC 100 MG INJ IV ONE (23:22)
[2019-02-03] MEDS ORDERED: D5W 1,000 ML IV ONE (23:26)
[2019-02-03 23:38] LABS: Arterial Blood Carboxyhemoglob 0.5 % (0-1.5); Blood Gas Oxyhemoglobin 96.2 % (94-97); Blood O2 Saturation 97.4 % (92-98.5)
[2019-02-03] MEDS ORDERED: WATER FOR INJ,STERILE 10 ML ONE (23:38)
[2019-02-03] MEDS ORDERED: D5W 1,000 ML with NA BICARB 8.4% 150 MEQ IV SCH ×2 (23:45)
[2019-02-03 23:47] LABS: Albumin 2.4 g/dL (3.4-5.0); Bilirubin Total 1.5 mg/dL (0.2-1.0); Magnesium 2.7 mg/dL (1.8-2.4); Potassium 4.4 mmol/L (3.5-5.1); Protein, Total 5.3 g/dL (6.4-8.2); Troponin I 0.26 ng/mL (0.0-0.045)
[2019-02-04 00:10] LABS: Protime INR 4.08
[2019-02-04] MEDS ORDERED: Caclcium Chloride 10% INJ SYR IV ONE ×5 (00:12→21:44)
[2019-02-04 00:16] LABS: Absolute Lymphocytes (CBC) 1.5 K/uL (0.7-4.9); Basophils % 0.1 % (0-1.3); Hematocrit 42.8 % (39.6-49.0); Lymphocytes % 14.5 % (15.3-44.8); RBC Red Blood Cell Count 4.59 M/uL (4.33-5.43)
[2019-02-04] MEDS ORDERED: CALCIUM GLUC 10% INJ 4.65 MEQ in NA CHLORIDE 0.9% 100 ML IV ONE ×3 (00:47→21:04)
[2019-02-04] MEDS ORDERED: PANTOPRAZOLE 40 MG INJ ONE (00:47)
[2019-02-04] MEDS ORDERED: NA CHLORIDE 0.9% 250 ML ONE (00:48)
[2019-02-04] MEDS ORDERED: CALCIUM GLUCONATE 1 GM IVPB 1 GM/50 ML BAG IV ONE ×3 (00:49→21:14)
[2019-02-04] MEDS ORDERED: SODIUM BICARB 50 MEQ/50ML VIAL ONE (00:58)
[2019-02-04] MEDS: CLINDAMYCIN INJ 600 MG in NA CHLORIDE 0.9% 50 ML IV SCH ×2 (01:00→11:04)
[2019-02-04] MEDS: PANTOPRAZOLE INJ 80 MG in NA CHLORIDE 0.9% 250 ML IV SCH ×3 (01:00→20:07)
[2019-02-04] MEDS ORDERED: D5W 250 ML IV ONE ×3 (01:21→06:41)
[2019-02-04] MEDS ORDERED: NOREPINEPHRINE 4 MG/4 ML VIAL ONE ×3 (01:21→06:41)
[2019-02-04] MEDS: NOREPINEPHRINE 4 MG in D5W 250 ML IV PRN ×4 (01:21→07:57)
[2019-02-04] MEDS ORDERED: CLINDAMYCIN 600MG/D5W 600 MG/50 ML BAG IV ONE (01:54)
[2019-02-04 02:56] LABS: Blood Gas Oxyhemoglobin 98.2 % (94-97); Blood O2 Saturation 99.8 % (92-98.5)
[2019-02-04] MEDS ORDERED: NA CHLORIDE 0.9% 500 ML IV ONE ×2 (02:58→06:51)
[2019-02-04 03:00] LABS: Blood Morphology Comment NOT SEEN (NOT SEEN); Platelet Estimate ADEQ; Toxic Granulation 3+
[2019-02-04] MEDS: FENTANYL CITR 100 MCG/2 ML IV PRN ×5 (03:22→20:20)
[2019-02-04 05:02] LABS: Absolute Lymphocytes (CBC) 0.6 K/uL (0.7-4.9); Basophils % 0.2 % (0-1.3); Hematocrit 42.5 % (39.6-49.0); Lymphocytes % 7.3 % (15.3-44.8); MPV 9.7 fL (7.6-11.3); RBC Red Blood Cell Count 4.73 M/uL (4.33-5.43)
[2019-02-04 05:46] LABS: Protime INR 5.22
[2019-02-04 05:53] LABS: Albumin 2.4 g/dL (3.4-5.0); Bilirubin Direct 1.7 mg/dL (0-0.2); Bilirubin Total 2.3 mg/dL (0.2-1.0); Protein, Total 5.1 g/dL (6.4-8.2)
[2019-02-04 05:56] LABS: Troponin I 1.98 ng/mL (0.0-0.045)
[2019-02-04 06:20] LABS: Magnesium 2.4 mg/dL (1.8-2.4); Potassium 3.8 mmol/L (3.5-5.1)
[2019-02-04 06:25] LABS: Phosphorus 9.7 mg/dL (2.5-4.9)
[2019-02-04] MEDS ORDERED: NA CHLORIDE 0.9% 500 ML ONE (06:41)
[2019-02-04] MEDS ORDERED: Meropenem 500 MG in NA CHLORIDE 0.9% 100 ML IV SCH (07:00)
[2019-02-04 07:14] VITALS: BMI 36.2
[2019-02-04] MEDS ORDERED: FLUMAZENIL 0.1 MG/ML (5 mL VIAL) IV ONE (07:15)
[2019-02-04] MEDS ORDERED: MIDAZOLAM HCL 2 MG/2 ML INJ ONE (07:15)
[2019-02-04] MEDS ORDERED: D5W 100 ML IV ONE (07:22)
[2019-02-04] MEDS ORDERED: AMIODARONE HCL 150 MG/3 ML INJ IV ONE ×2 (07:22→21:44)
[2019-02-04] MEDS ORDERED: D5W 1,000 ML with NA BICARB 8.4% 150 MEQ IV SCH ×2 (07:30)
[2019-02-04] MEDS ORDERED: HYDROCORTISONE SUC 100 MG INJ IV SCH (08:00)
--- NOTE | 2019-02-04 08:19 | RAD REPORT ---
EXAM DESCRIPTION: RAD - Chest Single View - 02/03/2019 11:07 pm CLINICAL HISTORY: EET placement Chest pain. COMPARISON: Chest Single View dated 02/03/2019; Chest Single View dated 02/03/2016; Chest Single View dated 02/02/2016; Chest Pa And Lat (2 Views) dated 01/31/2016 FINDINGS: Portable technique limits examination quality. Tip of the ET tube is above the christiano. Mild interstitial opacities bilaterally noted with moderate c ardiomegaly. Aortic atherosclerosis. No displaced fractures.
[2019-02-04 08:29] LABS: Arterial Blood Carboxyhemoglob 1.1 % (0-1.5); Blood Gas Oxyhemoglobin 95.3 % (94-97); Blood O2 Saturation 96.8 % (92-98.5)
--- NOTE | 2019-02-04 08:33 | P.PN ---
Subjective Date of Service: 02/03/19 Patient is an 78-year-old gentleman who was admitted earlier today with septic shock. The source of the infection appeared to be the lower extremities. Patient was admitted in atrial flutter with a heart rate in the 100. he was placed on Levophed in the emergency room. He was also severely acidotic secondary to lactic acidosis. He had been compensating when he 1st arrived as his pH was roughly 7.4. However later blood gases revealed that he was not compensating as well. He had been talkative when the table games shift manager started according to the ICU nurses. However, his heart rate slowed down into the 30s and he became unresponsive. A code blue was called. Initially ER physician intubated the patient and they were able to obtain return of spontaneous circulation within 10 minutes. Patient was treated by ER physician for PEA and then a ventricular tachyarrhythmia. He started the patient on amiodarone for his arrhythmia per ER physician - will consult cardiology for his atrial flutter with RVR -as well as octreotide for questionable GI bleed. Patient's Levophed was increased but 20mcgs. Patient was still hypotensive. Repeat blood gases at this time revealed a pH of 6.9. He was given multiple doses of bicarb and started on bicarb drip. Patient was bolused with saline as well. Patient also has started becoming hypocalcemic and Was given IV calcium. His heart rate and blood pressure improved significantly at this time. Will monitor patient very closely. I spoke to his son, Oscar, and he wants everything done. He states that he is his father's medical power of admitted attorneys. Patient's lactate and procalcitonin levels came back significantly elevated. Will repeat blood gases shortly. At this time patient's prognosis remains very poor. One creases respiratory rate as well to try to improve his acidosis. Patient is in renal failure as well and we will monitor his urine output and his renal function. Renal ultrasound will be pending. nephrology consultation. Patient's lab did reveal elevated liver enzymes and since patient started becoming bradycardic once again we went ahead and stop the amiodarone and the octreotide and put him on a Protonix drip. Patient does take Cardizem and Eliquis. We will wait for echocardiogram prior to initiating any antiarrhythmic as his heart rate is 100 to 110s. For his degree of sepsis his rate seems to be well controlled. My main goal is to improve his significant acidemia and to get his infection under better control. Patient does have an allergy to the cephalexin. We will stop cefepime. Will start him on Merrem, vancomycin, and clindamycin. Infectious disease was also consulted. Patient is at prognosis at this time is very poor. Hopefully we can get his acidemia improved, and hopefully his clinical status will start getting much better after this. Review of Systems is unable to be obtained Physical Examination - Vital Signs Temperature: 97 F Blood Pressure: 101/76 Pulse: 113 Respirations: 25 Pulse Ox (%): 96 - Physical Exam General: Other ( Patient is sedated and intubated but does follow commands) HEENT: Other ( ET tube and OG tube in place) Respiratory: Clear to auscultation bilaterally, Diminished Cardiovascular: Irregular heart rate/rhythm, Systolic murmur Gastrointestinal: Normal bowel sounds, Soft and benign, Non-distended Musculoskeletal: Erythema, Tenderness Integumentary: Skin breakdown, Skin lesion, Tenderness/swelling, Erythema, Other ( mottled appearance of the skin from the abdomen to the lower extremities ) - Studies Laboratory Data (last 24 hrs) 02/03/19 10:36: Phosphorus 4.6, Magnesium 2.0 02/03/19 10:36: PT 27.7 H, INR 2.43, APTT 25.3 02/03/19 10:36: WBC 7.0, Hgb 15.3, Hct 44.7, Plt Count 308 02/03/19 10:36: Sodium 141, Potassium 2.7 L*, BUN 37 H, Creatinine 2.95 H, Glucose 77, Total Bilirubin 1.1 H, AST 79 H, ALT 52, Alkaline Phosphatase 48, Lipase 64 L Microbiology Data (last 24 hrs): 02/03/19 10:22 Blood - Blood Anaerobic Blood Culture - Final Assessment & Plan - Problems (Diagnosis) (1) Cardiac arrest Current Visit: Yes Status: Acute (2) Septic shock Current Visit: Yes Status: Acute (3) Multiorgan failure Current Visit: Yes Status: Acute (4) Atrial flutter Current Visit: Yes Status: Acute (5) Acute kidney injury Current Visit: Yes Status: Acute (6) High anion gap metabolic acidosis Current Visit: Yes Status: Acute (7) Lactic acidosis Current Visit: Yes Status: Acute (8) Elevated procalcitonin Current Visit: Yes Status: Acute (9) Elevated troponin Current Visit: Yes Status: Acute (10) Elevated liver enzymes Current Visit: Yes Status: Acute (11) Lower extremity cellulitis Current Visit: Yes Status: Acute (12) HTN (hypertension) Onset Date: 02/01/16 Current Visit: No Status: Chronic Qualifiers: Hypertension type: essential hypertension Qualified Code(s): I10 - Essential (primary) hypertension (13) Hyperlipidemia Onset Date: 02/01/16 Current Visit: No Status: Chronic Qualifiers: Hyperlipidemia type: pure hypercholesterolemia Qualified Code(s): E78.00 - Pure hypercholesterolemia, unspecified; E78.0 - Pure hypercholesterolemia (14) Parkinson disease Onset Date: 02/01/16 Current Visit: No Status: Chronic - Plan plan: 1. Continue to hydrate aggressively 2. Bicarb drip to correct acidemia 3. Monitor IV pressors 4. IV sedation with fentanyl at this time 5. Consultation with Cardiology, Infectious Disease, and Nephrology 6. IV antibiotics to cover g positive and g negatives of well as anaerobes 7. Wound care for lower extremities 8. Repeat ABGs and monitor electrolytes and liver function testing closely supplement calcium as necessary for hypocalcemia 9. Abdominal ultrasound and echocardiogram 10. we have addressed code status with the son who wants everything done for his father. He is okay with blood transfusion and any other intervention that will be life-saving. 11. DC amiodarone and octreotide and continue PPI drip; monitor H&H closely as well as INR. Can reverse INR with vitamin K but this is probably elevated in the setting of his septic shock and secondary to DIC. Vitamin K could worsen thrombosis so will monitor INR and H&H closely. Will get DIC profile. 12. GI/DVT prophylaxis Discharge Plan: LTAC Plan to discharge in: Greater than 2 days - Advance Directives Does patient have a Living Will: No Does patient have a Durable POA for Healthcare: No - Code Status/Comfort Care Code Status Assessed: Yes Code Status: Full Code Critical Care: No Time Spent Managing PTS Care (In Minutes): 50
[2019-02-04] MEDS ORDERED: Meropenem 500 MG VIAL IV SCH (09:00)
[2019-02-04] MEDS ORDERED: PANTOPRAZOLE 40 MG INJ IVP SCH (09:00)
[2019-02-04] MEDS ORDERED: HEPARIN 5000 UNIT/ML 1 ML VIAL ONE (09:11)
--- NOTE | 2019-02-04 10:03 | P.OP ---
Preoperative diagnosis: Septic Shock / Acute Renal Failure Postoperative diagnosis: Septic Shock / Acute Renal Failure Primary procedure: Placement of LEFT femoral vein temporary hemodialysis catheter Anesthesia: Local Estimated blood loss: <10cc Specimen: None Findings: Dark nonpulsatile blood retured Complications: None Transferred to: Recovery Room Condition: Good
[2019-02-04 10:33] LABS: Thyroid Stimulating Hormone 1.63 uIU/mL (0.360-3.740); Uric Acid 8.2 mg/dL (3.5-7.2)
--- NOTE | 2019-02-04 10:50 | ECHO ---
HEIGHT: 5 ft 9 in WEIGHT: 245 lb 7 oz DATE OF STUDY: 02/04/[address]: Adalberto Molina MD 2-DIMENSIONAL: YES M.MODE: YES DOPPLER: YES COLOR FLOW: YES TDS: NO PORTABLE: YES DEFINITY: NO BUBBLE STUDY: NO DIAGNOSIS: HYPOTENSION CARDIAC HISTORY: CATHERIZATION: NO SURGERY: NO PROSTHETIC VALVE: NO PACEMAKER: NO MEASUREMENTS (cm) DIASTOLIC (NORMALS) SYSTOLIC (NORMALS) IVSd 1.0 (0.6-1.2) LA Diam 3.8 (1.9-4.0) LVEF 33% LVIDd 5.2 (3.5-5.7) LVIDs 4.4 (2.0-3.5) %FS 16% LVPWd 1.1 (0.6-1.2) Ao Diam 3.2 (2.0-3.7) 2 DIMENSIONAL ASSESSMENT: RIGHT ATRIUM: DILATED LEFT ATRIUM: DILATED RIGHT VENTRICLE: NORMAL LEFT VENTRICLE: NORMAL TRICUSPID VALVE: NORMAL MITRAL VALVE: NORMAL PULMONIC VALVE: NORMAL AORTIC VALVE: NORMAL PERICARDIAL EFFUSION: NONE AORTIC ROOT: NORMAL LEFT VENTRICULAR WALL MOTION: GLOBAL HYPOKINESIS. DOPPLER/COLOR FLOW: MILD MITRAL AND TRICUSPID REGURGITATION. NORMAL RIGHT VENTRICULAR SYSTOLIC PRESSURE. COMMENTS: DEPRESSED LEFT VENTRICULAR EJECTION FRACTION. DILATED LEFT AND RIGHT ATRIUM. MILD MITRAL AND TRICUSPID REGURGITATION. TECHNOLOGIST: Vivek KERN
[2019-02-04] MEDS: WATER FOR INJ,STERILE 10 ML IV SCH ×2 (11:03→16:20)
[2019-02-04] MEDS: HYDROCORTISONE SUC 100 MG INJ IV SCH ×2 (11:03→16:20)
[2019-02-04] MEDS: NOREPINEPHRINE 8 MG in Dextrose 5%-Water 500 ML IV PRN ×3 (11:28→20:07)
--- NOTE | 2019-02-04 11:33 | RAD REPORT ---
EXAM DESCRIPTION: US - Abdomen Exam Complete - 02/04/2019 11:20 am CLINICAL HISTORY: Abdominal pain. Elevated liver/ANA PAULA COMPARISON: RP EXAM COMPLETE dated 06/08/2012 FINDINGS: Mild fatty liver noted. No focal liver lesions or intrahepatic biliary dilatation is seen. The gallbladder demonstrates sludge and several shadowing stones. Common bile duct is mildly promine nt measuring 7 mm. Both kidneys are normal in size, shape and echotexture. No hydronephrosis, focal lesion of concern or perinephric fluid. The spleen is normal in size. The pancreas and aorta are obscured by bowel gas. The visualized aspects of the IVC are grossly normal. IMPRESSION: Mild fatty liver. Gallbladder sludge and stones present.
--- NOTE | 2019-02-04 11:36 | EKG ---
Test Date: 2019-02-04 Test Time: 07:28:10 Facility Mechanic: NICKY MEASUREMENT RESULTS: Intervals: Rate: 111 NE: 228 QRSD: 70 QT: 386 QTc: 524 [place]: P: 60 NE: 228 QRS: 53 T: 75 INTERPRETIVE STATEMENTS: Sinus tachycardia with 1st degree AV block Low voltage QRS Nonspecific T wave abnormality Abnormal ECG Compared to ECG 02/04/2019 00:36:31 First degree AV block now present Atrial fibrillation no longer present T-wave abnormality still present Electronically Signed On 02-04-19 11:36:04 CDT by Audie Phillips
--- NOTE | 2019-02-04 11:37 | EKG ---
Test Date: 2019-02-04 Test Time: 00:36:31 Senior Risk Analyst: RT MEASUREMENT RESULTS: Intervals: Rate: 107 [place]: QRSD: 66 QT: 318 QTc: 424 [place]: P: [place]: QRS: 30 T: 73 INTERPRETIVE STATEMENTS: Atrial fibrillation with rapid ventricular response Low voltage QRS Nonspecific T wave abnormality, probably digitalis effect Abnormal ECG Compared to ECG 02/03/2019 22:44:26 Sinus tachycardia no longer present First degree AV block no longer present T-wave abnormality still present Electronically Signed On 02-04-19 11:36:26 CDT by Audie Phillips
--- NOTE | 2019-02-04 11:38 | EKG ---
Test Date: 2019-02-03 Test Time: 22:44:26 Dry Pan Operator: TAB MEASUREMENT RESULTS: Intervals: Rate: 102 [place]: 280 QRSD: 88 QT: 324 QTc: 422 [place]: P: NV: 280 QRS: 26 T: 88 INTERPRETIVE STATEMENTS: atrial flutter with variable AV block Low voltage QRS Nonspecific T wave abnormality Abnormal ECG Compared to ECG 02/03/2019 10:11:55 Low QRS voltage now present Electronically Signed On 02-04-19 11:37:24 CDT by Audie Phillips
--- NOTE | 2019-02-04 11:48 | CON ---
Reason For Consult: Atrial flutter, abnormal troponins. History Of Present Illness: Mr. Weems is a gentleman, who has had atrial fib before he came into the hospital with hypotension, nausea, vomiting, sweating, fever. He has been found to be in sepsis . His urine may be part of the problem, may be pulmonary, but it is mostly cutaneous. He also has a multiorgan system failure with creatinine above 3, troponins above 1.98, procalcitonin was 109. We do not have much old records on Mr. 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 He is intubated. Presently, he is on numerous antibiotics. He has been in atrial flutter all night. Last night befo re he was intubated, he became hypoxic, asystolic. Once he was intubated, had a few chest compressio ns, he resumed atrial flutter. There was no shock given at that time. Physical Examination: Vital Signs: His blood pressure is 92/50, heart rate 120, it is irregularly irregular. General: He is intubated. He responds to questions and answer yes and no. Lungs: Do not reveal crackles or wheezes. Heart: Irregularly irregular. No significant murmur. Abdomen: Soft. Extremities: Reveal lots of cutaneous changes, chronic venous stasis changes, ulcers. Feet are very discolored. Skin: Actually warm on his legs, not sure if he is a tobacco user or not. Chest x-ray does not show an infiltrate. Impression: Presently, he is being treated with multiple antibiotics. I think we need to try and es tablish sinus rhythm. It is hard at better chance to work efficiently and we will give him Versed an d reverse it immediately with Romazicon as soon as it is in. He may need to be on an antiarrhythmic drug for a while, we can give amiodarone. AIDAN/DARIANA Voice ID: [id number] Report ID: [id number]
[2019-02-04] MEDS: D5W 1,000 ML with NA BICARB 8.4% 150 MEQ IV SCH ×4 (12:00→20:07)
--- NOTE | 2019-02-04 14:57 | CON ---
Date of Consultation: 02/04/2019 Reason For Consultation: Elevated BUN and creatinine, acidosis. History Of Present Illness: All the information has been obtained from the record and from the son o jesús the phone as the patient intubated status post sedation for cardioversion. This is a pleasant 78 -year-old gentleman with significant past medical history of hypertension, atrial fibrillation, hyper lipidemia, Parkinson's, gout, prostate hypertrophy status post TURP. Patient was in his regular stat e of health, apparently has been complaining of leg swelling for the last few days. This leg swellin g got worse with erythema in both lower extremities. For that reason, patient was visiting to his de rmatologist in the Dermatology office, suspects of severe cellulitis. For that reason, patient was s ent to the emergency room. Patient arrived to the emergency room, walking, found to have blood press ure down to 64/52 with severe acidosis and elevation of creatinine of 2.9. Patient was started on fl uid resuscitation, received a total of 5-1/2 L, was started on sodium bicarb, found to have also elev ation in CK up to 11,000. Val[place] was inserted. No urine output. Patient over the night apparently d eveloped asystole, had cardioversion with resuscitation for almost 15 minutes, brought back. In the morning, patient developed atrial fibrillation with RVR, undergone cardioversion. Patient's blood pr essure required placing him on pressor and blood pressure currently after the fluid resuscitation and on max on Levophed, 99/45. Patient is still tachycardic up to 110. Patient follows simple commands, even though that he is on vent. Family denied any other significant surgery on the abdomen. No colostomy or intestinal removal. Pat ient not taking any nonsteroidal. No recent change in his medication. Over the night, patient had only 50 mL of urine, dark. Past Medical History: As above include: 1.Hypertension. 2.Atrial fibrillation. 3.Hyperlipidemia. 4.Parkinson disease. Past Surgical History: 1.Hernia repair. 2.Skin cancer removal. 3.TURP. Social History: Denies smoking. Denies drinking. Denies drug abuse. Family History: Positive for hypertension. Home Medications: Lactobacillus, methyldopa, ranitidine, simethicone, diltiazem, allopurinol, atorva statin, metoprolol. Review of Systems: Not obtainable. Physical Examination: Vital Signs: When I saw the patient, blood pressure 99/46, pulse of 110. T-max 100.4. General: Patient follows simple commands. Chest: Faint crackles bilateral base, more prominent on the left base. Heart: S1, S2. Tachycardic. Abdomen: Distended, tender. Mild guarding. Extremities: Dressing both legs and feet with erythema and under skin bruises, ecchymosis. +3 edema . Neuro: Alert, follows simple commands. Laboratory Data: Back in 2017, H and H of 13/37.9 and creatinine 0.9, GFR of 76. Upon presentation to the hospital yesterday, sodium 143, potassium 2.7, bicarb 13, BUN 37, creatinine 2.9, calcium 7.9, magnesium 2, lactic acid of 14. LFT, AST 79. CK-MB 10.9. Albumin 3.1. Procalcitonin of 42. Jace isol pending. PTH is still pending. Latest lab data today, sodium 144, potassium 3.8, bicarb 18, ch loride 103, BUN 50, creatinine 3.4, GFR of 17, calcium 8.8, phosphorus 9.7. Urinalysis; specific gra vity of 1.015, wbc of 10, +1 protein. ABG; pH 7.29, O2 of 101, CO2 of 28, bicarb 13, saturation 96 o n 50%. Chest x-ray, cardiomegaly with congestion. Echocardiogram, primary reading, ejection fractio n below 30. Current Medications: The patient on in the hospital include clindamycin 600 q.8, meropenem 500 q.12, vancomycin 1.5 q.48, Levophed, amiodarone, sodium bicarb drip, hydrocortisone 100 q.8. Assessment And Plan: 1.Acute kidney injury secondary to multifactorial, poor perfusion, acute tubular necrosis secondary to shock/toxic acute tubular necrosis, secondary to rhabdomyolysis/septic shock. 2.Rhabdomyolysis complicated with severe acidosis and anuric over volume. a.Patient is going to need renal replacement therapy given the marginal low blood pressure and the c ardiogenic shock, patient will need CVVH. I had long discussion with the patient's son over the phon e regarding the option of treatment. Patient's son agreed for the transfer to [facility], prefer [facility]. We will proceed with that. We will attempt that transfer. If we fail, we wi ll try [place] area. If we fail, we will try to do slow hemodialysis in our facility and we will continue to monitor. 3.Rhabdomyolysis/fasciitis. We will continue current antibiotic. Follow up with Surgery. 4.Acidosis secondary to lactic acidosis, poor perfusion. We will continue on sodium bicarb for the rhabdomyolysis and for the acidosis. Currently, the bicarb level is acceptable. Our goal to have bi carb pH of the urine to be above 6.5. For that reason, I am going to go ahead and increase the bicar b drip to 150 per hour. 5.Hypokalemia, corrected, resolved. We will avoid any further replacement as the patient is anuric. 6.Urinary tract infection, urosepsis. Continue current antibiotic. 7.Septic shock. Clindamycin dose appropriate, vancomycin dose appropriate. I am going to adjust th e meropenem and will follow up with the primary. Consider ID consult. 8.Cellulitis with septic shock, as above. 9.Gout. No need for any allopurinol for the time being. 10.Atrial fibrillation with cardiogenic shock, status post cardioversion. We will follow up with Ca rdiology. 11.Congestive heart failure exacerbation/cardiogenic shock. Patient is going to need to be establis hed better volume control. Will achieve that hopefully on the CVVH/dialysis. Will follow up with Ca rdiology. Time spent 65 minutes. Case discussed with Dr. Molina, discussed with the family, agreed on the plan. CARRINGTON Voice ID: [id number] Report ID: [id number]
[2019-02-04] MEDS ORDERED: VASOPRESSIN 80 UNIT in NA CHLORIDE 0.9% 250 ML IV PRN (17:57)
--- NOTE | 2019-02-04 18:26 | OP ---
Surgeon: Audie Phillips MD Procedure: Direct current cardioversion. Indication: Atrial fibrillation and flutter with hypotension. Procedure In Detail: The patient was intubated, n.p.o., sedated with 5 mg of Versed. Anterior-poste rior paddles were applied to the patient's chest. He was shocked with a single shock of 200 joules, synchronized the QRS complex emerged from that rhythm in sinus tachycardia and EKG pending. Complica tions from the procedure none. At the end of the procedure, we are going to reverse his versed with Romazicon. AIDAN/DARIANA Voice ID: [id number] Report ID: [id number]
[2019-02-04 19:09] LABS: Absolute Lymphocytes (CBC) 0.3 K/uL (0.7-4.9); Basophils % 0.1 % (0-1.3); Hematocrit 42.5 % (39.6-49.0); Lymphocytes % 2.7 % (15.3-44.8); MPV 10.3 fL (7.6-11.3); RBC Red Blood Cell Count 4.86 M/uL (4.33-5.43)
--- NOTE | 2019-02-04 19:47 | CON ---
History Of Present Illness: This is an 78-year-old male. I was consulted for septic shock and bacte remia secondary to gram-negative rods. The patient, as per son, was normally [place] the [place] Denies any other problems in the pas t, except history of prostate cancer, which has been treated; hypertension; reflux; arthritis; high c holesterol; Parkinson's; gout; morbid obesity; skin cancer. Social History: Nonsmoker, nondrinker. Family History: Noncontributory. Medications: Clindamycin, meropenem, and vancomycin. See MARs for other medications. Allergies: LISINOPRIL, MEPERIDINE, CEPHALEXIN, AND NIFEDIPINE. Family History: Noncontributory. Review of Systems: A 10-point review was performed as patient is able to respond by shaking his head, even though he is intubated. The patient walked into the ER, but later on coded and was put on ventilator and right no w on Levophed 30 mcg. Physical Examination: General: This is an 78-year-old male, lying in bed, in moderate cardiopulmonary distress. Vital Signs: Temperature 98, pulse 109, respirations 28, blood pressure 99/71, on a Levophed drip at 30 mcg per hour. HEENT: ET tube in place. Neck: Supple. Lungs: Basal crackles. Heart: S1 and S2 are regular. Abdomen: Soft, nontender. Bowel sounds present. Extremities: 3+ edema with decreased temperature in extremities as most likely because of Levophed. Laboratory Data: Shows WBC 8.6; hemoglobin 14,000; platelets are 190. Chemistry shows sodium 144, p otassium 3.8, chloride 103, bicarb 18, BUN 50, creatinine 3.43, glucose is 124. Lactic acid 14, down to 10.3. Procalcitonin is 109.82. Micro data showing gram-negative rods in blood cultures. Urine cultures are negative. Chest x-ray shows ET tube in place. Mild interstitial opacity bilaterally noted with moderate cardio megaly. Venous Doppler of the lower extremity shows no DVT. Assessment/plan: An 78-year-old male with septic shock possibly secondary to cellulitis of lower ext remity. Currently being treated with meropenem, clindamycin and vancomycin. We will recommend to st op clindamycin. Continue empiric treatment for the cultures to come back. The patient being transfe rred to higher level of care. Renal failure, acute, getting dialyzed. Currently, on a high rate vas opressors secondary to septic shock. Prognosis guarded. Continue empiric antibiotic and supportive care. Keep his leg elevated when possible. Thank you Dr. Molina for consult. NF/MODL Voice ID: [id number] Report ID: [id number]
[2019-02-04 20:38] LABS: Albumin 1.9 g/dL (3.4-5.0); Bilirubin Total 2.3 mg/dL (0.2-1.0); Magnesium 2.3 mg/dL (1.8-2.4); Phosphorus 7.9 mg/dL (2.5-4.9); Potassium 4.4 mmol/L (3.5-5.1); Protein, Total 4.9 g/dL (6.4-8.2)
--- NOTE | 2019-02-04 20:56 | OP ---
Date of Procedure: 02/04/2019 Surgeon: Doni Fontaine MD, Preoperative Diagnosis: Septic shock/acute renal failure. Postoperative Diagnosis: Septic shock/acute renal failure. Procedure Performed: Placement of left femoral vein temporary hemodialysis catheter. Anesthesia: Local 1% lidocaine. Estimated Blood Loss: Less than 10 mL. Specimens: None. Findings: Dark nonpulsatile blood return. Complications: None. Patient remained in the ICU in critical condition. Procedure In Detail: After informed consent was obtained patient was prepped and draped in the usual sterile fashion. After adequate anesthesia was achieved using anatomic landmarks, I was able to can nulate the left femoral vein on the first attempt. Dark red, non-pulsatile blood was returned. Usin g the microintroducer set I advanced the wire, it advanced quite easily. I then used the introducer sheath over the wire technique and was able to pull the wire back and the wire out was called. The s tandard wire was then placed in through this introducer sheath and the introducer sheath was removed. A ed incision was made over the standard wire and using sequential dilatation, I dilated up the f emoral vein tract and placed the hemodialysis catheter over. The wire out was called for the second time. The dark, red, nonpulsatile blood was returned through both ports and flushed quite easily. T he catheter was then secured to the skin using 2-0 nylon sutures and the sterile dressing was placed over top. Patient tolerated the procedure well without evidence of complication, remained in the ICU in critical condition. All counts were correct at the end of the c ase. DAIANA/DARIANA Voice ID: [id number] Report ID: [id number]
[2019-02-04 21:04] VITALS: O2SAT 95
[2019-02-04] MEDS ORDERED: AMIODARONE IN DEXTROSE,ISO-OSM 360 MG/200 ML BAG IV ONE (21:44)
[2019-02-04] MEDS ORDERED: EPINEPHrine 1 MG/10 ML SYR IV ONE (21:44)
--- NOTE | 2019-02-04 22:08 | CON ---
Date of Consultation: 02/04/2019 Reason For Consultation: Need for hemodialysis emergently. History is obtained mostly from the chart, as the patient is nonverbal at the time of my examination, intubated in the ICU. Brief History Of Present Illness: The patient is an 78-year-old gentleman with significant past [facility], [place] history of hypertension, atrial fibrillation, hyperlipidemia, Parkinson's, gout, prostate hypertr ophy status post TURP, who was complaining of leg swelling over the past several days prior to his ad mission and it got worse and he had erythematous changes, extending all the way to his abdomen at [facility] time and he went to the dermatology office and then had a concern for cellulitis. He was sent to [facility] emergency room at that time. He walked in the emergency room and found to have a blood pressure o f 64/52 with severe acidosis and elevation of creatinine almost 3. He began fluid resuscitation and had elevation of his CK. He had a code blue called when developed asystole. Cardioversion was start ed and resuscitation, which took about 15 minutes. The patient was resuscitated successfully at that time. He developed atrial fibrillation with RVR and had additional cardioversion in the morning. H is blood pressure remained low and he was on maximum dose Levophed, and his blood pressure is maintai leti in the 87/45 range at the time of my examination and remains tachycardic to the 122 range during my exam. Past Medical History: Hypertension, atrial fibrillation, hyperlipidemia, Parkinson's, BPH, gout. Past Surgical History: He has had hernia repair, skin cancer removal, and TURP. Family History: Positive for hypertension. Medications: Medications at home include: Lactobacillus, methyldopa, ranitidine, simethicone, dilti azem, allopurinol, atorvastatin, and metoprolol. Review of Systems: Unable to obtain as the patient is intubated. Social History: Unable to obtain, but by report, he denied smoking, drinking, and drug use by report . Physical Examination: At the time of my examination: Vital Signs: As above. General: He is sedated, intubated on the ventilator. He follows simple commands. HEENT: He is otherwise normocephalic. His sclerae are anicteric. He has injected conjunctivae. Hi s oropharynx is somewhat dry. He has ET tube in place and NG tube in place. Chest: He has bilateral crackles to the bilateral bases. He is tachycardic. Abdomen: Distended. Mild global tenderness to palpation. Mild involuntary guarding globally. His abdomen is mottled. Extremities: He has dressing to both lower extremity and there is significant 2+ pitting edema in bi lateral extremities. Ecchymotic changes to bilateral lower extremities extending from the feet to al most his nipples. Laboratory Data: Laboratory exam, which revealed a pH of 7.29, pCO2 28.7, pO2 101, HCO3 13. His bas e excess is -11. It was -21 yesterday. His white blood cell count is 8.6, hemoglobin is 14.0, hemat ocrit of 42.5, platelet count is 190. His neutrophils are 87%. His neutrophil bands yesterday were 21. His PT is 57.8, INR 5.22, PTT is 41.6. He has sodium 144, potassium 3.8, chloride 103, carbon d ioxide 18, BUN 50, creatinine 3.4, glucose is 124. Lactic acid is 10.3, down from 14.1 on admission. Calcium is 8.8, phosphorus is 9.7, magnesium 2.4, total bilirubin 2.3, direct component 1.7. His A ST is 822, ALT is 420, alkaline phosphatase is 68. CK is 11,057 today. CK-MB is 250. His troponin I is 1.98. His lipase was 64 on admission. Procalcitonin is 109.82. His PTH is 412, cortisol 111. UA; he had 20 to 50 bacteria and moderate mucus. He had an abdominal ultrasound performed, which was officially read as gallbladder sludge and stones present, mild fatty liver. Common bile duct is mildly prominent, measuring 7 mm. He had a chest x-r ay performed as well, which was officially read as mild interstitial opacities bilateral noted with m oderate cardiomegaly. No displaced fractures. He additionally had an extremity venous study on , which was read as no evidence of DVT involving either lower extremity. Assessment And Plan: This is an 78-year-old male, who presents with acute multiorgan failure. 1.Continue resuscitation per primary medical team and nephrology team per Dr. Matthews. 2.We have obtained consent for placement of a femoral temporary hemodialysis line. 3.In reviewing his labs, he has multi-system organ failure. I do not find that he has an acute surg ical abdomen requiring emergency surgery, and as such, he is too unstable at this point with respect to his hemodynamic status, coagulopathy, and other comorbid factors to survive any surgical intervent ion, and as such, he is not a surgical candidate at this time. Please call me again if the patient h as any evidence of surgical issue requiring intervention and we will be happy to come and see the pat ient again. TK/MODL Voice ID: [id number] Report ID: [id number]
[2019-02-05] MEDS ORDERED: Meropenem 500 MG in NA CHLORIDE 0.9% 100 ML IV SCH (09:00)
[2019-02-06 04:49] VITALS: BP 101/76; TEMP 97
--- NOTE | 2019-02-06 04:53 | P.DS ---
Discharge Date: 02/04/19 Disposition: TRANSFER TO [facility] Discharge Condition: FAIR Consultations: Cardiology, Nephrology, Infectious Disease, General surgery - Problems (1) Cardiac arrest Status: Acute (2) Septic shock Status: Acute (3) Multiorgan failure Status: Acute (4) Atrial flutter Status: Acute (5) Acute kidney injury Status: Acute (6) High anion gap metabolic acidosis Status: Acute (7) Lactic acidosis Status: Acute (8) Elevated procalcitonin Status: Acute (9) Elevated troponin Status: Acute (10) Elevated liver enzymes Status: Acute (11) Lower extremity cellulitis Status: Acute (12) HTN (hypertension) Onset Date: 02/01/16 Status: Chronic Qualifiers: Hypertension type: essential hypertension Qualified Code(s): I10 - Essential (primary) hypertension (13) Hyperlipidemia Onset Date: 02/01/16 Status: Chronic Qualifiers: Hyperlipidemia type: pure hypercholesterolemia Qualified Code(s): E78.00 - Pure hypercholesterolemia, unspecified; E78.0 - Pure hypercholesterolemia (14) Parkinson disease Onset Date: 02/01/16 Status: Chronic Brief History of Present Illness: Patient is an 78-year-old gentleman who was admitted earlier today with septic shock. The source of the infection appeared to be the lower extremities. Patient was admitted in atrial flutter with a heart rate in the 100. he was placed on Levophed in the emergency room. He was also severely acidotic secondary to lactic acidosis. He had been compensating when he 1st arrived as his pH was roughly 7.4. However later blood gases revealed that he was not compensating as well. He had been talkative when the spd manager started according to the ICU nurses. However, his heart rate slowed down into the 30s and he became unresponsive. A code blue was called. Initially ER physician intubated the patient and they were able to obtain return of spontaneous circulation within 10 minutes. Patient was treated by ER physician for PEA and then a ventricular tachyarrhythmia. He started the patient on amiodarone for his arrhythmia per ER physician - will consult cardiology for his atrial flutter with RVR -as well as octreotide for questionable GI bleed. Patient's Levophed was increased but 20mcgs. Patient was still hypotensive. Repeat blood gases at this time revealed a pH of 6.9. He was given multiple doses of bicarb and started on bicarb drip. Patient was bolused with saline as well. Patient also has started becoming hypocalcemic and Was given IV calcium. His heart rate and blood pressure improved significantly at this time. Will monitor patient very closely. I spoke to his son, Oscar, and he wants everything done. He states that he is his father's medical power of civil attorney. Patient's lactate and procalcitonin levels came back significantly elevated. Will repeat blood gases shortly. At this time patient's prognosis remains very poor. One creases respiratory rate as well to try to improve his acidosis. Patient is in renal failure as well and we will monitor his urine output and his renal function. Renal ultrasound will be pending. nephrology consultation. Patient's lab did reveal elevated liver enzymes and since patient started becoming bradycardic once again we went ahead and stop the amiodarone and the octreotide and put him on a Protonix drip. Patient does take Cardizem and Eliquis. We will wait for echocardiogram prior to initiating any antiarrhythmic as his heart rate is 100 to 110s. For his degree of sepsis his rate seems to be well controlled. My main goal is to improve his significant acidemia and to get his infection under better control. Patient does have an allergy to the cephalexin. We will stop cefepime. Will start him on Merrem, vancomycin, and clindamycin. Infectious disease was also consulted. Patient is at prognosis at this time is very poor. Hopefully we can get his acidemia improved, and hopefully his clinical status will start getting much better after this. Hospital Course: Patient's clinical condition started to a stabilize. We went ahead and got multiple consultations. Hemodialysis access catheter was placed. Nephrology felt patient needed slow hemodialysis which we do not do at our facility. We went ahead and arrange for transfer to tertiary care facility. Patient was accepted at [facility]. At this time, patient is stable and should be discharged and transferred to a higher level of care. Hopefully patient will receive the care necessary to continue to improve. Patient is stable for transfer. Vital Signs/Physical Exam: Temp Pulse Resp BP Pulse Ox 97 F 113 H 25 H 101/76 96 02/06/19 04:49 02/06/19 04:49 02/06/19 04:49 02/06/19 04:49 02/06/19 04:49 General: Alert Respiratory: Diminished, Crackles/rales Cardiovascular: No murmurs, Irregular heart rate/rhythm Laboratory Data at Discharge: WBC 9.8 K/uL (4.3-10.9) 02/04/19 18:43 Hgb 14.5 g/dL (13.6-17.9) 02/04/19 18:43 Hct 42.5 % (39.6-49.0) 02/04/19 18:43 Plt Count 110 K/uL (152-406) L D 02/04/19 18:43 PT 57.8 SECONDS (9.5-12.5) H 02/04/19 04:46 INR 5.22 H* 02/04/19 04:46 APTT 41.6 SECONDS (24.3-36.9) H 02/04/19 04:46 Sodium 139 mmol/L (136-145) 02/04/19 18:43 Potassium 4.4 mmol/L (3.5-5.1) 02/04/19 18:43 BUN 61 mg/dL (7-18) H 02/04/19 18:43 Creatinine 3.57 mg/dL (0.55-1.3) H 02/04/19 18:43 Glucose 171 mg/dL (74-106) H 02/04/19 18:43 Uric Acid 8.2 mg/dL (3.5-7.2) H 02/04/19 09:33 Phosphorus 7.9 mg/dL (2.5-4.9) H 02/04/19 18:43 Magnesium 2.3 mg/dL (1.8-2.4) 02/04/19 18:43 Total Bilirubin 2.3 mg/dL (0.2-1.0) H 02/04/19 18:43 AST 579 U/L (15-37) H* D 02/04/19 18:43 ALT 386 U/L (12-78) H* 02/04/19 18:43 Alkaline Phosphatase 85 U/L (45-117) 02/04/19 18:43 Troponin I 1.98 ng/mL (0.0-0.045) H* D 02/04/19 04:46 Lipase 64 U/L (73-393) L 02/03/19 10:36 Home Medications: Ranitidine [Zantac*] 150 mg PO BEDTIME 02/23/12 Diltiazem HCl [Diltiazem 24Hr Cd] 120 mg PO BID 01/31/16 Allopurinol [Zyloprim*] 100 mg PO DAILY tab 03/12/16 Amlodipine Besylate 10 mg PO DAILY 02/03/19 Apixaban [Eliquis] 2.5 mg PO BID 02/03/19 Furosemide 40 mg PO DAILY 02/03/19 Patient Discharge Instructions: Patient transferred [facility] Time spent managing pt's care (in minutes): 30
== END 2019-02-04 21:45 | disposition short-term general hospital (02) | DRG 871 ==
LOC: ER 09:50 → ERHOLD 13:15 → 3RD-ICU 14:40
PROVIDERS: ADMIT Family Medicine; ATTEND Family Medicine
PROC: 5A2204Z Restoration of Cardiac Rhythm, Single (ICD-10-PCS; principal; 2019-02-04)
PROC: 06HY33Z Insertion of Infusion Device into Lower Vein, Percutaneous Approach (ICD-10-PCS; 2019-02-04)
DX: A41.50 Gram-negative sepsis, unspecified (principal); R65.21 Severe sepsis with septic shock; N17.0 Acute kidney failure with tubular necrosis; R57.0 Cardiogenic shock; L03.116 Cellulitis of left lower limb; L03.115 Cellulitis of right lower limb; I48.92 Unspecified atrial flutter; M62.82 Rhabdomyolysis; E87.2 Acidosis; N39.0 Urinary tract infection, site not specified; I10 Essential (primary) hypertension; K21.9 Gastro-esophageal reflux disease without esophagitis; E78.5 Hyperlipidemia, unspecified; G20 Parkinson's disease; E87.6 Hypokalemia; E78.00 Pure hypercholesterolemia, unspecified
CPT/HCPCS: 36415; 71045; 76700; 80048; 80053; 80076; 81003; 81015; 82140; 82330; 82533; 82550; 82553; 82805; 82962; 83605; 83690; 83735; 83970; 84100; 84145; 84443; 84484; 84550; 85025; 85610; 85730; 86850; 86900; 86901; 87040; 87070; 87075; 87086; 87088; 87205; 93005; 93306; 93970; 94002; 94003; 94660; 96365; 96367; 96368; 96375; 99291; 99292; C9113; J0171; J0282; J0610; J0692; J1644; J1720; J2250; J2354; J3010; J3370; J7030; J7040; J7060